=== PATIENT | female | born 1995 | race Hispanic/Latino ===

== ENCOUNTER 2023-04-11 18:34 | Emergency (ER) | payer SELFPAY ==
[2023-04-11 19:10] VITALS: BP 129/98; PULSE 96; RESP 16; TEMP 37.7; O2SAT 97
--- NOTE | 2023-04-11 19:30 | ED.URI ---
HPI - URI/Sore Throat General Chief Complaint: Upper Respiratory Infection Stated Complaint: Sore Throat;Ear Pain;Congestion Time Seen by Provider: 04/11/23 19:25 Source: patient and RN notes reviewed Mode of arrival: ambulatory Limitations: no limitations History of Present Illness HPI Narrative: Patient presents today with a one-week history of sore throat, rhinorrhea, cough, bilateral ear pain with fever up to 100.2 that started today. Denies shortness of breath. Currently rates her pain 9/10 and has been taking Tylenol and cough drops with some relief. Related Data Home Medications Medication Instructions Recorded Confirmed No Home Medications 04/11/23 04/11/23 Allergies Allergy/AdvReac Type Severity Reaction Status Date / Time No Known Allergies Allergy Verified 04/11/23 19:13 Review of Systems Review of Systems: CONSTITUTIONAL: Denies body aches, or sweats.+ fever, chills EYES: Denies visual changes, redness, or discharge. ENT: Denies congestion. + rhinorrhea, sore throat, bilateral ear pain CARDIOVASCULAR: Denies chest pain, palpitations, or edema. RESPIRATORY: Denies dyspnea.+ cough GASTROINTESTINAL: Denies abdominal pain, nausea, vomiting, or diarrhea. GENITOURINARY: Denies dysuria or hematuria. SKIN: Denies rash, itching, or wounds. MUSCULOSKELETAL: Denies back pain, joint pain, or myalgia. NEUROLOGIC: Denies headache, numbness, tingling, or weakness. PSYCH: Denies depression or anxiety. PMFSH Comments At time of signature, I have reviewed and agree with nursing past medical, surgical, social and family history unless otherwise noted. Please see nursing chart for further information. There is no relevant family history pertinent to the presenting complaint Exam Narrative: GENERAL: Mildly ill-appearing, well-nourished, and in no acute distress. HEAD: Normocephalic, atraumatic. EYES: EOMI. No redness or drainage. Conjunctivae normal. ENT: Mucous membranes pink and moist. Nares congested with rhinorrhea. TMs normal bilaterally. Throat mildly erythematous without edema or exudate. Uvula midline. NECK: Normal AROM. Supple. No lymphadenopathy. CHEST: No respiratory distress. Clear to auscultation. HEART: Regular rate and rhythm. No murmur appreciated. EXTREMITIES: Normal range of motion. No edema. SKIN: Warm, dry, no rash. Capillary refill normal. Normal skin turgor. NEURO: No focal deficits. Alert and oriented x3. Gait steady. PSYCH: Normal affect. No signs of depression or anxiety. Course Course Level of Care: Express Care Visit Vital Signs Vital signs: Vital Signs Temperature 99.8 F H 04/11/23 19:10 Pulse Rate 96 04/11/23 19:10 Respiratory Rate 16 04/11/23 19:10 Blood Pressure 129/98 H 04/11/23 19:10 Pulse Oximetry 97 04/11/23 19:10 Oxygen Delivery Room Air 04/11/23 19:10 Temperature 99.8 F H 04/11/23 19:10 Pulse Rate 96 04/11/23 19:10 Respiratory Rate 16 04/11/23 19:10 Blood Pressure 129/98 H 04/11/23 19:10 Pulse Oximetry 97 04/11/23 19:10 Oxygen Delivery Room Air 04/11/23 19:10 Reviewed MDM - URI/Sore Throat MDM Narrative Medical decision making narrative: Rapid strep and influenza negative. Strep culture pending. Due to fever that appeared today, patient may have a secondary bacterial infection. Will treat with a course of Augmentin. Discussed [id number] medication use induration of illness. Anticipatory guidance given. Differential Diagnosis Differential diagnosis: Likely upper respiratory infection, otitis media, viral infection, bronchitis, influenza, pharyngitis and other (Strep throat) Lab Data Attestation: I reviewed the patient's lab results. Labs: Influenza A Screen Negative Reference Range: Negative Influenza B Screen Negative Reference Range: Negative Strep Screen
== END 2023-04-11 19:46 | disposition home or self-care (01) ==
PROVIDERS: Emergency Provider Nurse Practitioner
DX: J06.9 Acute upper respiratory infection, unspecified (principal)
CPT/HCPCS: 87081; 87804; 87880; 99213; G0463